=== PATIENT | female | born 1940 | race Caucasian/White ===

== ENCOUNTER 2020-03-01 17:02 | Emergency (ER) | payer MEDICARE, OTHER ==
[~2020-03-01] VITALS: Ht 154.9 cm; Wt 78.9 kg
[2020-03-01] MEDS ORDERED: ONDANSETRON HCL/PF 4 MG/2 ML VIAL ONE (17:39)
[2020-03-01] MEDS ORDERED: ONDANSETRON HCL/PF 4 MG/2 ML VIAL IVP ONE (18:00)
[2020-03-01 18:02] LABS: EOSINOPHILS % (AUTO) 10.3 % (0.0-6.0); HEMATOCRIT 31 % (33-45); HEMOGLOBIN 10.1 g/dL (11.5-14.8); LYMPHOCYTES # (AUTO) 1.3 /CMM (0.8-4.8); MEAN CORPUSCULAR HGB CONC 33 g/dl (31.0-36.0); MEAN CORPUSCULAR VOLUME 89 fL (82-100); MONOCYTES # (AUTO) 0.2 /CMM (0.1-1.30); MONOCYTES % (AUTO) 2.3 % (2.0-12.0); NEUTROPHILS # (AUTO) 5.8 /CMM (1.8-8.9); NEUTROPHILS % (AUTO) 71.4 % (43.0-81.0); PLATELET COUNT (AUTO) 181 /CMM (150-450); RED BLOOD CELL COUNT(AUTO) 3.47 MIL/uL (4.0-5.2); WHITE BLOOD COUNT (AUTO) 8.2 K/uL (4.3-11.0)
[2020-03-01 18:10] LABS: CARBON DIOXIDE 27 mmol/L (21-32); CHLORIDE 104 mmol/L (98-107); CREATININE 1.1 mg/dL (0.6-1.3); GLUCOSE 108 mg/dL (74-106); POTASSIUM 3.7 mmol/L (3.5-5.1); SODIUM SERUM 142 mmol/L (136-145); UREA NITROGEN, BLOOD 17 mg/dL (7-18)
--- NOTE | 2020-03-01 18:21 | NUR ---
LINDA [place] FRM RESIDENTIAL FOR FEVER, NAUSEA AND DIARRHEA NOTED AT 1400. PT AAOX1, VSS, RR EVEN & UNLABORED. DENIES CP, SOB, DIZZINESS, WEAKNESS @ THIS TIME. PT SEEN & EVAL'D BY DR. SWEET. MEDICATED ORDERED. WILL CONT TO MONITOR.
[2020-03-01 18:22] LABS: ALANINE AMINOTRANSFERASE 18 U/L (12-78); ALBUMIN 2.9 g/dL (3.4-5.0); ALKALINE PHOSPHATASE 79 U/L (46-116); ASPARTATE AMINOTRANSFERASE 21 U/L (15-37); B-TYPE NATRIURETIC PEPTIDE 2030 PG/ML (0-125); BILIRUBIN,TOTAL 0.7 mg/dL (0.2-1.0); TOTAL PROTEIN, SERUM 6.6 g/dL (6.4-8.2)
[2020-03-01 18:39] LABS: SITE, ABG Left Brachial
[2020-03-01 18:40] LABS: ABG BASE EXCESS 0.1 mmol/L; ABG OXYGEN SATURATION 89.7 % (92.0-98.5); ABG PCO2 39.1 mmHg (35.0-45.0); ABG PH 7.416 (7.350-7.450); ABG PO2 62.5 mmHg (75.0-100.0); AaDO2 40.4 mmHg; COHb 2.5 % (0.5-1.5); MetHb 0.3 % (0.0-1.5); O2Hb 87.2 % (94.0-97.0); VENT MODE, BG RA
[2020-03-01 18:55] LABS: D-DIMER 0.68 mg/L(FEU (0.17-0.50)
[2020-03-01] MEDS ORDERED: LORAZEPAM INJ 2 MG/ML VIAL ONE (19:11)
--- NOTE | 2020-03-01 19:20 | NUR ---
DR. SWEET ON THE PHONE WITH DR. LEDESMA
[2020-03-01] MEDS ORDERED: LORAZEPAM INJ 2 MG/ML VIAL IV ONE (19:30)
[2020-03-01 19:34] LABS: C-REACTIVE PROTEIN 1.1 mg/dL (0.0-0.9); CREATINE KINASE, TOTAL 34 U/L (26-192); FERRITIN 129 ng/mL (8-388)
[2020-03-01 19:53] LABS: APPEARANCE,URINE Cloudy (CLEAR); BILIRUBIN,URINE Negative (NEGATIVE); BLOOD, URINE Moderate Ery/uL (NEGATIVE); COLOR,URINE Yellow (YELLOW); KETONES,URINE Trace (NEGATIVE); LEUKOCYTE ESTERASE ,URINE Large (NEGATIVE); NITRITE, URINE Negative (NEGATIVE); PROTEIN,URINE >=300 mg/dl (NEGATIVE); UGLUCOSE Negative (NEGATIVE); UROBILINOGEN,URINE 0.2 EU/dL (0.2)
--- NOTE | 2020-03-01 20:15 | NUR ---
CALLED [facility] FOR TRANSPORTATION. ETA 2100
[2020-03-01 20:27] LABS: BACTERIA,URINE Moderate /HPF (None Seen); SQUAMOUS EPITHELIAL CELL,UR Few /HPF (None Seen); WBC,URINE TOO NUMEROUS TO COUN /HPF (0-3)
[2020-03-01 20:33] LABS: BILIRUBIN,DIRECT 0.2 mg/dL (0.0-0.2)
--- NOTE | 2020-03-01 21:05 | NUR ---
Patient discharged to home in stable condition. Written and verbal after care instructions given. Patient verbalizes understanding of instruction. IV removed. Catheter intact and site benign. Pressure and 4x4 applied to site. No bleeding noted.
[2020-03-01 21:20] VITALS: BP 126/83
== END 2020-03-01 21:21 ==
LOC: ER 17:07
DX: A08.4 Viral intestinal infection, unspecified (principal); R82.71 Bacteriuria; G40.909 Epilepsy, unspecified, not intractable, without status epilepticus; I10 Essential (primary) hypertension; E78.5 Hyperlipidemia, unspecified; Z87.440 Personal history of urinary (tract) infections; I48.0 Paroxysmal atrial fibrillation; I25.2 Old myocardial infarction; I97.89 Other postprocedural complications and disorders of the circulatory system, not elsewhere classified; I45.2 Bifascicular block; E11.9 Type 2 diabetes mellitus without complications; Z20.828 Contact with and (suspected) exposure to other viral communicable diseases
CPT/HCPCS: 0099U; 36415; 36600; 71045; 80053; 81001; 82248; 82550; 82728; 83605 ×2; 83615; 83690; 83880; 84145; 84484; 85025; 85378; 85730; 86140; 87040 ×2; 87086; 87635; 93005; 96374; 96375; 99285; J2060; J2405; 81000-TC